=== PATIENT | female | born 1985 | race Caucasian/White ===

== ENCOUNTER → 2016-12-09 | Outpatient (CLI) | payer OTHER | END | disposition home or self-care (01) | LOC: CFH 10:43 | PROVIDERS: ATTEND Physical Medicine & Rehabilitation | DX: M48.07 Spinal stenosis, lumbosacral region (principal); Q89.9 Congenital malformation, unspecified; M95.4 Acquired deformity of chest and rib; M79.1 Myalgia; M46.1 Sacroiliitis, not elsewhere classified; M47.816 Spondylosis without myelopathy or radiculopathy, lumbar region | CPT/HCPCS: 72110; 72202 ==

== ENCOUNTER → 2016-12-28 | Outpatient (CLI) | payer OTHER | END | disposition home or self-care (01) | LOC: CFH 16:39 | PROVIDERS: ATTEND Physical Medicine & Rehabilitation | DX: M48.06 Spinal stenosis, lumbar region (principal); M51.26 Other intervertebral disc displacement, lumbar region | CPT/HCPCS: 72148; 73523 ==

== ENCOUNTER → 2017-01-26 | Outpatient (CLI) | payer OTHER | END | disposition home or self-care (01) | LOC: CFH 14:37 | PROVIDERS: ATTEND Physical Medicine & Rehabilitation | DX: N32.89 Other specified disorders of bladder (principal); M43.16 Spondylolisthesis, lumbar region; M21.852 Other specified acquired deformities of left thigh; M21.851 Other specified acquired deformities of right thigh | CPT/HCPCS: 72195 ==

== ENCOUNTER → 2017-02-16 | Outpatient (CLI) | payer OTHER | END | disposition home or self-care (01) | LOC: RAD 06:56 → EDSTATUS 07:00 | PROVIDERS: ATTEND Neurological Surgery | DX: Z01.812 Encounter for preprocedural laboratory examination (principal); M47.894 Other spondylosis, thoracic region; M51.44 Schmorl's nodes, thoracic region; M40.50 Lordosis, unspecified, site unspecified; R10.2 Pelvic and perineal pain; R53.1 Weakness; M79.601 Pain in right arm | CPT/HCPCS: 71020; 72141; 72146 ==